=== PATIENT | male | born 1945 | race Caucasian/White ===

== ENCOUNTER 2017-12-23 12:38 | Outpatient (CLI) | payer MEDICARE ==
--- NOTE | 2017-12-23 14:06 | RAD ---
TWO VIEWS OF THE ABDOMEN: HISTORY: Constipation. The patient's last bowel movement was five days ago. COMPARISON: None. FINDINGS: Two views of the abdomen show a nonspecific, nonobstructive bowel gas pattern. No significant stool retention is seen in the colon. Air is seen in the sigmoid colon. No free air or air-fluid levels a re seen on the upright examination. Multiple calcifications in the left upper quadrant of the abdomen likely represent splenic granulomas . IMPRESSION: No evidence of obstruction. POS: [facility]
== END 2017-12-23 12:39 | disposition home or self-care (01) ==
LOC: SCSRAD 12:38
PROVIDERS: ATTEND Family Medicine
DX: K59.01 Slow transit constipation (principal); R10.32 Left lower quadrant pain
CPT/HCPCS: 36415; 74019; 81003; 83615; 85025; 87086

== ENCOUNTER 2019-03-19 12:32 | Outpatient (CLI) | payer MEDICARE ==
--- NOTE | 2019-03-19 13:06 | RAD ---
SIX VIEWS LUMBOSACRAL SPINE: Comparison: None. History: Left hip pain for one month. FINDINGS: AP, lateral, oblique, and flexion/extension views of the lumbosacral spine was performed. The vertebr al bodies and intervertebral discs demonstrate normal height and alignment without fracture or sublux ation. Small osteophytes are seen in the lumbar spine. Alignment is unchanged in flexion and extensio n. Mild posterior facet arthrosis is seen in the lower lumbosacral spine. Vascular calcifications are seen in the aorta. IMPRESSION: Moderate degenerative changes of the lumbar spine with unchanged alignment with bending. POS: [facility]
== END 2019-03-19 12:33 | disposition home or self-care (01) ==
LOC: SCSRAD 12:32
PROVIDERS: ATTEND Family Medicine
DX: M54.5 Low back pain (principal); M47.816 Spondylosis without myelopathy or radiculopathy, lumbar region
CPT/HCPCS: 36415; 72100; 80053; 84478

== ENCOUNTER 2019-08-14 07:55 | Day surgery (SDC) | payer MEDICARE ==
[2019-08-13 13:14] VITALS: BMI 204.2
[2019-08-14] MEDS ORDERED: Lidocaine 1% (PF) 30 ML VIAL ONE (09:10)
[2019-08-14] MEDS ORDERED: Verapamil 5 MG/2 ML VIAL ONE (09:19)
[2019-08-14] MEDS ORDERED: Nitroglycerin 100MG/250ML BOT 250 ML ONE (09:19)
[2019-08-14] MEDS ORDERED: Heparin 10,000 UNITS/1 ML VIAL ONE (09:19)
[2019-08-14] MEDS ORDERED: Midazolam HCl 2 mg/2 ml Vial ONE (09:26)
[2019-08-14] MEDS ORDERED: Fentanyl 100 MCG/2 ML VIAL ONE (09:26)
[2019-08-14] MEDS ORDERED: Iopamidol 370 76% 100 ML VIAL ONE (09:53)
== END 2019-08-14 13:35 | disposition home or self-care (01) ==
LOC: CCL 07:55
PROVIDERS: ATTEND Internal Medicine Cardiovascular Disease
PROC: 4A023N7 Measurement of Cardiac Sampling and Pressure, Left Heart, Percutaneous Approach (ICD-10-PCS; principal; 2019-08-14)
PROC: B2001ZZ Plain Radiography of Single Coronary Artery using Low Osmolar Contrast (ICD-10-PCS; 2019-08-14)
DX: I25.119 Atherosclerotic heart disease of native coronary artery with unspecified angina pectoris (principal); I10 Essential (primary) hypertension; Z79.82 Long term (current) use of aspirin; Z79.899 Other long term (current) drug therapy; Z87.891 Personal history of nicotine dependence; Z88.8 Allergy status to other drugs, medicaments and biological substances
CPT/HCPCS: 76942; 93458; 99152; 99153; C1769; J1644; J2001; J2250; J3010; Q9967

== ENCOUNTER 2019-09-17 07:16 | Outpatient (CLI) | payer MEDICARE | END 2019-09-17 07:17 | disposition home or self-care (01) | LOC: LABBT 07:16 | PROVIDERS: ATTEND Thoracic Surgery (Cardiothoracic Vascular Surgery) | DX: Z01.810 Encounter for preprocedural cardiovascular examination (principal); I25.10 Atherosclerotic heart disease of native coronary artery without angina pectoris | CPT/HCPCS: 93005; 93010 ==

== ENCOUNTER 2019-09-17 14:30 | Inpatient (IN) | payer MEDICARE ==
[2019-09-17 13:10] LABS: Hemoglobin 15.2 g/dL (14.0-18.0); Mean Corpuscular HGB CONC 32.7 g/dL (32.0-36.0); Mean Corpuscular Hemoglobin 30.7 pg (27.0-31.0); Mean Corpuscular Volume 93.8 fL (78.0-98.0); Mean Platelet Volume 9.5 fL (7.4-10.4); Platelet Count 190 thou/uL (130-400); RBC Distribution Width 11.8 % (11.5-14.5); Red Blood Cell (RBC) Count 4.95 mill/uL (4.70-6.10); White Blood Cell (WBC) Count 7.2 thou/uL (4.8-10.8)
[2019-09-17 13:27] LABS: Anion Gap 12 mmol/L (10-20); BUN (Urea Nitrogen) 19 mg/dL (8.4-25.7); Calc. Creatinine Clearance 0 mL/min (70-130); Calcium 10.2 mg/dL (7.8-10.44); Carbon Dioxide 29 mmol/L (23-31); Chloride 103 mmol/L (98-107); Estimated GFR-MDRD 50; Glucose 103 mg/dL (83-110); Potassium 4.4 mmol/L (3.5-5.1); Sodium 140 mmol/L (136-145)
[2019-09-18] MEDS ORDERED: Albumin 5% 500 ML ONE (06:30)
[2019-09-18] MEDS ORDERED: Fentanyl 100 MCG/2 ML VIAL ONE (06:31)
[2019-09-18] MEDS ORDERED: Midazolam HCl 5 mg/5 ml Vial ONE (06:31)
[2019-09-18] MEDS ORDERED: Midazolam HCl 2 mg/2 ml Vial ONE (06:31)
[2019-09-18] MEDS ORDERED: Dexmedetomidine 200 MCG/2 ML VIAL ONE (06:32)
[2019-09-18] MEDS ORDERED: Vecuronium 10 MG VIAL ONE (06:32)
[2019-09-18] MEDS ORDERED: Heparin 10,000 UNITS/1 ML VIAL 30,000 UNITS in Sodium Chloride 0.9% 1,000 ML FS SCH (06:45)
[2019-09-18] MEDS ORDERED: Prevnar 13-Val Conj/PF 0.5 ML SYRINGE IM ONE (08:45)
[2019-09-18] MEDS ORDERED: FLU VACC TS2019-20(65YR UP)/PF 180 MCG/0.5 ML SYRINGE IM ONE (08:45)
[2019-09-18] MEDS ORDERED: PHENYLEPHRINE-NS 100 MCG/ML 10 ML SYRINGE ONE (09:50)
[2019-09-18] MEDS ORDERED: Protamine Sulfate 50 MG/5 ML VIAL ONE (10:44)
[2019-09-18] MEDS ORDERED: Ondansetron PF 4 MG/2 ML Vial IVP PRN (11:54)
[2019-09-18] MEDS ORDERED: niCARdipine 25 MG in Sodium Chloride 0.9% 250 ML 240 ML IVPB PRN (11:54)
[2019-09-18] MEDS ORDERED: Morphine 2 MG/ML SYRINGE SLOW IVP PRN (11:54)
[2019-09-18] MEDS ORDERED: Mag-Al 1200 mg/1200 mg/30 ML UDCUP PO PRN (11:54)
[2019-09-18] MEDS ORDERED: DOPamine 400 MG/D5W 250 ML 250 ML IVPB PRN (11:54)
[2019-09-18] MEDS ORDERED: Promethazine HCl 25 MG/ML VIAL IM PRN (11:54)
[2019-09-18] MEDS ORDERED: Norepinephrine 8 MG/0.9% NS 250 ML IVPB PRN (11:54)
[2019-09-18] MEDS ORDERED: Bisacodyl 5 MG TAB PO PRN (11:54)
[2019-09-18] MEDS ORDERED: Guaifenesin DM 100-10/5 ML UDCUP PO PRN (11:54)
[2019-09-18] MEDS ORDERED: Fentanyl 100 MCG/2 ML VIAL SLOW IVP PRN (11:54)
[2019-09-18] MEDS ORDERED: hydrALAZINE 20 MG/ML VIAL SLOW IVP PRN (11:54)
[2019-09-18] MEDS ORDERED: Hetastarch 6% 500 ML 500 ML IVPB PRN (11:54)
[2019-09-18] MEDS ORDERED: Acetaminophen 325 MG TAB PO PRN (11:54)
[2019-09-18] MEDS ORDERED: Bisacodyl 10 MG SUPP PR PRN (11:54)
[2019-09-18] MEDS ORDERED: Nitroglycerin 50 MG/250 ML BOT 250 ML IVPB PRN (11:54)
[2019-09-18] MEDS ORDERED: HYDROcodone/Acetaminophen 5/325 mg Tablet PO PRN (11:54)
[2019-09-18] MEDS ORDERED: Post-Op Insulin Drip Protocol IVPB ONE (11:54)
[2019-09-18] MEDS ORDERED: Potassium Chloride 20 MEQ/100 ML PREMIX BAG IVPB PRN (11:54)
[2019-09-18] MEDS ORDERED: Magnesium 2 GM/50 ML 2 GM in Premix Bag 1 BAG IVPB SCH (12:15)
[2019-09-18] MEDS ORDERED: Dextrose 5% in Water 1,000 ML IV PRN (12:24)
[2019-09-18] MEDS ORDERED: Insulin Regular 300 UNITS/3 ML VIAL SC PRN (12:24)
[2019-09-18] MEDS ORDERED: HUMULIN R 100 UNITS in Sodium Chloride 0.9% 100 ML IVPB SCH ×2 (12:24→13:34)
[2019-09-18] MEDS ORDERED: Dextrose 50% Abboject 50 ML SYRINGE SLOW IVP PRN (12:24)
[2019-09-18 12:42] LABS: Hemoglobin 13.2 g/dL (14.0-18.0); Mean Corpuscular HGB CONC 33.4 g/dL (32.0-36.0); Mean Corpuscular Hemoglobin 31.7 pg (27.0-31.0); Mean Corpuscular Volume 94.7 fL (78.0-98.0); RBC Distribution Width 11.9 % (11.5-14.5); Red Blood Cell (RBC) Count 4.17 mill/uL (4.70-6.10); White Blood Cell (WBC) Count 18.6 thou/uL (4.8-10.8)
[2019-09-18 12:47] LABS: INR-International Normal Ratio 1.3; Prothrombin Time 16.4 SEC (12.0-14.7)
[2019-09-18 12:48] LABS: PTT 22.1 SEC (22.9-36.1)
[2019-09-18] MEDS: Fentanyl 100 MCG/2 ML VIAL SLOW IVP PRN ×2 (12:56→14:04)
[2019-09-18] MEDS: Lactated Ringer's 1,000 ML IV SCH ×2 (12:58→21:08)
[2019-09-18 13:08] LABS: Anion Gap 11 mmol/L (10-20); BUN (Urea Nitrogen) 14 mg/dL (8.4-25.7); Calc. Creatinine Clearance 101 mL/min (70-130); Calcium 8.5 mg/dL (7.8-10.44); Carbon Dioxide 25 mmol/L (23-31); Chloride 107 mmol/L (98-107); Estimated GFR-MDRD 68; Glucose 157 mg/dL (83-110); Potassium 4.2 mmol/L (3.5-5.1); Sodium 139 mmol/L (136-145)
--- NOTE | 2019-09-18 13:24 | RAD ---
PORTABLE CHEST ONE VIEW: 09/18/2019 12:10 p.m. HISTORY: Post CABG surgery. COMPARISON: 01/29/2016 FINDINGS: Interval changes of median sternotomy are present. There is a right subclavian central line with the tip in the projection of the right atrium. A mediastinal drain is present. The heart size is stable. There is atelectatic change at the left lung base with probable accompanying small effusion. No defin ite pneumothorax is seen. POS: [facility]
[2019-09-18 13:28] LABS: #Eosinphils 0.3 thou/uL (0.0-0.7); #Lymphocytes 1.4 thou/uL (1.20-3.40); #Monocytes 0.9 thou/uL (0.11-0.59); %Basophils 0.2 % (0.0-1.0); %Eosinophils 1.7 % (0.0-10.0); %Lymphocytes 7.7 % (21.0-51.0); %Monocytes 4.7 % (0.0-10.0); %Neutrophils 85.7 % (42.0-75.0); MDiff Complete? YES; Mean Platelet Volume 9.1 fL (7.4-10.4); Platelet Count 110 thou/uL (130-400)
[2019-09-18 13:29] LABS: Band 27 % (5-11); Lymphocytes 9 % (21-51); Monocytes 3 % (0-10); Neutrophil 61 % (42-75); Platelet Morphology Comment Appears Decreased; RBC Morphology Normal
[2019-09-18] MEDS: CEFAZOLIN 2 GM in Premix Bag 1 BAG IVPB SCH ×2 (13:55→21:07)
[2019-09-18] MEDS: Ibuprofen 800 MG TAB PO SCH ×2 (13:56→21:06)
--- NOTE | 2019-09-18 15:30 | CON ---
DATE OF CONSULTATION: 09/18/2019 REASON FOR CONSULTATION: Status post CABG. HISTORY OF PRESENT ILLNESS: Mr. Dockery is a very pleasant 74-year-old white gentleman, well known to myself, who comes to the hospital for planned CABG. He underwent this procedure earlier today by Dr. Ann. He did well. He is now extubated. He is complaining of just sore chest. Otherwise, he is not needing any pressor or inotropic support. PAST MEDICAL HISTORY: 1. Hypertension. 2. Bradycardia. 3. History of coronary disease with previous stenting. SURGICAL HISTORY: 1. Stents in 1994. 2. Left heart catheterization some weeks ago. SOCIAL HISTORY: Former smoker over 10 years ago. No alcohol or drugs. OUTPATIENT MEDICATIONS: Include 1. Simvastatin 40 mg a day. 2. Aspirin 81 a day. 3. Benazepril 40 mg a day. 4. Hydrochlorothiazide 25 mg a day. 5. Omeprazole daily over the counter. 6. Norvasc 5 mg a day. 7. MiraLAX p.r.n. ALLERGIES: 1. MUSCLE RELAXER GIVES HIM HALLUCINATIONS. 2. RANITIDINE. REVIEW OF SYSTEMS: A 12-point review of systems was done and was all negative unless stated in the history of present illness. FAMILY HISTORY: Noncontributory. PHYSICAL EXAMINATION: VITAL SIGNS: Temperature 97.4, pulse 74, respiratory rate 14, saturating 94% on room air, and blood pressure 104/59. GENERAL: Awake, alert, oriented x3. No distress. HEENT: Normocephalic, atraumatic. NECK: Supple. LUNGS: Clear. CARDIOVASCULAR: S1 and S2. There is a three-component rub consistent with his chest tubes in place. ABDOMEN: Soft, positive bowel sounds. EXTREMITIES: Trace edema. SKIN: Warm and dry. LABORATORY DATA: Laboratory work was reviewed. Hemoglobin was 15 down to 13 after surgery. CMP was unremarkable. Chest x-ray was reviewed. ASSESSMENT PLAN WAS: 1. Multivessel coronary artery disease, status post coronary artery bypass grafting. 2. Hypertension. PLAN: 1. Continue post CABG care. 2. He will need aspirin and statin for life. 3. Restart SKIP inhibitor and possibly a beta-janneth once blood pressure and heart rate allows. Thank you for letting us to participate in the care of your patient. We will follow. Job ID: [id number]
[2019-09-18] MEDS: HYDROcodone/Acetaminophen 5/325 mg Tablet PO PRN (16:47)
[2019-09-18 18:26] LABS: Hemoglobin 13.1 g/dL (14.0-18.0)
[2019-09-18 18:41] LABS: Potassium 4.3 mmol/L (3.5-5.1)
[2019-09-19] MEDS: HYDROcodone/Acetaminophen 5/325 mg Tablet PO PRN (01:58)
[2019-09-19 03:20] LABS: #Lymphocytes 0.9 thou/uL (1.20-3.40); #Monocytes 1.2 thou/uL (0.11-0.59); #Neutrophils 12.9 thou/uL (1.40-6.50); %Basophils 0.1 % (0.0-1.0); %Eosinophils 0.1 % (0.0-10.0); %Lymphocytes 6.2 % (21.0-51.0); %Monocytes 8.2 % (0.0-10.0); %Neutrophils 85.4 % (42.0-75.0); Hemoglobin 12.5 g/dL (14.0-18.0); Mean Corpuscular HGB CONC 33.7 g/dL (32.0-36.0); Mean Corpuscular Hemoglobin 32.4 pg (27.0-31.0); Mean Corpuscular Volume 96.2 fL (78.0-98.0); Mean Platelet Volume 9.1 fL (7.4-10.4); Platelet Count 137 thou/uL (130-400); RBC Distribution Width 12.1 % (11.5-14.5); Red Blood Cell (RBC) Count 3.85 mill/uL (4.70-6.10); White Blood Cell (WBC) Count 15.1 thou/uL (4.8-10.8)
[2019-09-19 03:43] LABS: Anion Gap 12 mmol/L (10-20); BUN (Urea Nitrogen) 19 mg/dL (8.4-25.7); Calc. Creatinine Clearance 98 mL/min (70-130); Calcium 8.5 mg/dL (7.8-10.44); Carbon Dioxide 25 mmol/L (23-31); Chloride 105 mmol/L (98-107); Estimated GFR-MDRD 66; Glucose 124 mg/dL (83-110); Potassium 4.1 mmol/L (3.5-5.1); Sodium 138 mmol/L (136-145)
[2019-09-19] MEDS: Fentanyl 100 MCG/2 ML VIAL SLOW IVP PRN (04:12)
[2019-09-19] MEDS: Ibuprofen 800 MG TAB PO SCH ×3 (05:11→21:14)
[2019-09-19] MEDS: CEFAZOLIN 2 GM in Premix Bag 1 BAG IVPB SCH (05:12)
[2019-09-19] MEDS: Enoxaparin Sodium 40 MG/0.4 ML SYRINGE SC SCH (08:29)
[2019-09-19] MEDS: Lactated Ringer's 1,000 ML IV SCH (08:29)
[2019-09-19] MEDS: Polyethylene Glycol 3350 17 GM Packet PO SCH (08:30)
--- NOTE | 2019-09-19 08:40 | RAD ---
Portable frontal chest radiograph: 09/19/2019 COMPARISON: 09/18/2019 HISTORY: Evaluate chest following open heart surgery FINDINGS: Body habitus and portable technique limiting detailed assessment. Stable heart and mediasti nal contours. Stable midline sternotomy wires and right vascular catheter. Mild pulmonary vascular congestion. Mild increased linear density in the right infrahilar region and left lung base suggestin g volume loss. IMPRESSION: Mild increased density in the lung bases.
[2019-09-19] MEDS ORDERED: Aspirin 325 MG TAB PO SCH (09:00)
[2019-09-19] MEDS ORDERED: Nitroglycerin 0.4 MG TAB (25 Tab Bottle) SL PRN (10:24)
[2019-09-19] MEDS ORDERED: Mag-Al 1200 mg/1200 mg/30 ML UDCUP PO PRN (10:24)
[2019-09-19] MEDS ORDERED: Bisacodyl 10 MG SUPP PR PRN (10:24)
[2019-09-19] MEDS ORDERED: Bisacodyl 5 MG TAB PO PRN (10:24)
[2019-09-19] MEDS ORDERED: Guaifenesin DM 100-10/5 ML UDCUP PO PRN (10:24)
[2019-09-19] MEDS ORDERED: diphenhydrAMINE 25 MG CAP PO PRN (10:24)
[2019-09-19] MEDS ORDERED: Artificial Tears 18 DROP/0.9 ML EA EYE PRN (10:24)
[2019-09-19] MEDS ORDERED: traMADol HCl 50 MG TAB PO PRN ×2 (10:24)
[2019-09-19] MEDS ORDERED: Mineral Oil ENEMA PR PRN (10:24)
[2019-09-19] MEDS ORDERED: Zolpidem Tartrate 5 MG TAB PO PRN (10:24)
[2019-09-19] MEDS: Metoprolol Tartrate 25 MG TAB PO SCH (21:13)
[2019-09-19] MEDS: Atorvastatin Calcium 20 MG TAB PO SCH (21:13)
[2019-09-20 05:48] LABS: #Lymphocytes 1.5 thou/uL (1.20-3.40); #Monocytes 1.4 thou/uL (0.11-0.59); #Neutrophils 12.5 thou/uL (1.40-6.50); %Basophils 0.1 % (0.0-1.0); %Eosinophils 0.1 % (0.0-10.0); %Lymphocytes 9.5 % (21.0-51.0); %Monocytes 8.8 % (0.0-10.0); %Neutrophils 81.5 % (42.0-75.0); Hemoglobin 11.2 g/dL (14.0-18.0); Mean Corpuscular HGB CONC 32.3 g/dL (32.0-36.0); Mean Corpuscular Hemoglobin 31.1 pg (27.0-31.0); Mean Corpuscular Volume 96.1 fL (78.0-98.0); Mean Platelet Volume 9.8 fL (7.4-10.4); Platelet Count 130 thou/uL (130-400); Red Blood Cell (RBC) Count 3.61 mill/uL (4.70-6.10); White Blood Cell (WBC) Count 15.4 thou/uL (4.8-10.8)
[2019-09-20] MEDS: Ibuprofen 800 MG TAB PO SCH ×3 (05:59→20:37)
[2019-09-20 06:03] LABS: Anion Gap 12 mmol/L (10-20); BUN (Urea Nitrogen) 22 mg/dL (8.4-25.7); Calc. Creatinine Clearance 103 mL/min (70-130); Calcium 8.6 mg/dL (7.8-10.44); Carbon Dioxide 26 mmol/L (23-31); Chloride 101 mmol/L (98-107); Estimated GFR-MDRD 70; Glucose 130 mg/dL (83-110); Potassium 4.1 mmol/L (3.5-5.1); Sodium 135 mmol/L (136-145)
[2019-09-20] MEDS: Enoxaparin Sodium 40 MG/0.4 ML SYRINGE SC SCH (09:42)
[2019-09-20] MEDS: Aspirin 81 mg Enteric Coated Tablet PO SCH (09:42)
[2019-09-20] MEDS: Furosemide 40 MG TAB PO SCH (09:42)
[2019-09-20] MEDS: Metoprolol Tartrate 25 MG TAB PO SCH ×2 (09:42→20:37)
[2019-09-20] MEDS: Polyethylene Glycol 3350 17 GM Packet PO SCH (09:42)
--- NOTE | 2019-09-20 10:53 | RAD ---
PORTABLE CHEST 1 VIEW: Date: 09/20/19 Time: 0745 hours HISTORY: Post CABG. FINDINGS/IMPRESSION: Comparison made with exam from previous day. There are changes of median sternotomy. Line and tube placements are unchanged in position. There is atelectatic change in the lung bases. No pneumothoraces seen. POS: [facility]
--- NOTE | 2019-09-20 15:32 | PDOC.CPN ---
- Subjective Date: 09/20/19 Time: 15:35 Interval history: The pt seen and examined. No overnight events. No cardiac complaints - Objective Allergies/Adverse Reactions: Allergies Allergy/AdvReac Type Severity Reaction Status Date / Time ranitidine HCl [From Zantac] Allergy Verified 09/17/19 11:47 unknown muscle relaxer Allergy hallucinati Uncoded 09/17/19 11:47 ons Visit Medications: Current Medications Al Hydroxide/Mg Hydroxide (Maalox) 30 ml PO Q4H PRN PRN Reason: Indigestion Albuterol/Ipratropium (Duoneb) 3 ml NEB [id number] PRN PRN Reason: SHORTNESS OF BREATH Artificial Tears (Tears Naturale) 0 drop EA EYE PRN PRN PRN Reason: Dry Eyes Aspirin (Ecotrin) 81 mg PO DAILY [facility] Last Admin: 09/20/19 09:42 Dose: 81 mg Atorvastatin Calcium (Lipitor) 20 mg PO HS [facility] Last Admin: 09/19/19 21:13 Dose: 20 mg Bisacodyl (Dulcolax) 10 mg PO Q12H PRN PRN Reason: Constipation Bisacodyl (Dulcolax) 10 mg RI Q12H PRN PRN Reason: Constipation Diphenhydramine HCl (Benadryl) 25 mg PO Q6H PRN PRN Reason: Itching & Insomnia or Bandar Cristhian Enoxaparin Sodium (Lovenox) 40 mg SC 0900 [facility] Last Admin: 09/20/19 09:42 Dose: 40 mg Furosemide (Lasix) 40 mg PO DAILY-[facility] Stop: 09/22/19 07:31 Last Admin: 09/20/19 09:42 Dose: 40 mg Guaifenesin/Dextromethorphan (Robitussin Dm) 15 ml PO Q4H PRN PRN Reason: Cough Ibuprofen (Motrin) 400 mg PO Q8HR [facility] Last Admin: 09/20/19 13:38 Dose: 400 mg Metoprolol Tartrate (Lopressor) 25 mg PO BID [facility] Last Admin: 09/20/19 09:42 Dose: 25 mg Mineral Oil (Fleet Mineral Oil) 133 ml RI DAILYPRN PRN PRN Reason: Constipation Nitroglycerin (Nitrostat) 0.4 mg SL Q5MIN PRN PRN Reason: Chest Pain Ondansetron HCl (Zofran) 4 mg IVP Q6H PRN PRN Reason: Nausea/Vomiting Polyethylene Glycol (Miralax) 17 gm PO DAILY [facility] Last Admin: 09/20/19 09:42 Dose: 17 gm Tramadol HCl (Ultram) 50 mg PO Q6H PRN PRN Reason: Moderate to Severe Pain (6-10) Zolpidem Tartrate (Ambien) 5 mg PO HSPRN PRN PRN Reason: Insomnia Vital Signs & Weight: Vital Signs Temp Pulse Pulse Pulse Resp BP BP 09/20/19 14:13 88 86 171/80 H 129/71 09/20/19 12:00 98.3 F 81 16 09/20/19 11:49 87 80 161/76 H 130/77 09/20/19 11:33 98.7 F 80 14 09/20/19 08:30 09/20/19 08:03 98.0 F 80 18 09/20/19 04:00 97.7 F 85 14 BP Pulse Ox Pulse Ox Pulse Ox 09/20/19 14:13 92 L 71 L 09/20/19 12:00 130/77 99 09/20/19 11:49 95 96 09/20/19 11:33 134/70 97 09/20/19 08:30 98 09/20/19 08:03 124/65 95 09/20/19 04:00 133/72 94 L Weight 251 lb - Physical Exam General: alert & oriented x3 Neck: supple neck Cardiac: regular rate and rhythm, S1/S2 Lungs: clear to auscultation, decreased breath sounds Neuro: cranial nerve 2-12 intact Abdomen: unremarkable Extremities: no cyanosis Skin: clear Musculoskeletal: decreased range of motion - Labs Result Diagrams: 09/20/19 04:40 09/20/19 04:39 - Telemetry Sinus rhythms and dysrhythmias: sinus rhythm - Assessment/Plan Assessment/Plan: 1. CAD with s/p CABG - stable with Metoprolol 25mg BID, ASA, and statin 2. HTN - stable 3. HLD - on Statin MAR reviewed * Dr Reina's pt
[2019-09-20] MEDS: Atorvastatin Calcium 20 MG TAB PO SCH (20:37)
[2019-09-21] MEDS: Ibuprofen 800 MG TAB PO SCH ×3 (06:18→21:12)
[2019-09-21] MEDS: Enoxaparin Sodium 40 MG/0.4 ML SYRINGE SC SCH (09:48)
[2019-09-21] MEDS: Polyethylene Glycol 3350 17 GM Packet PO SCH (09:48)
[2019-09-21] MEDS: Metoprolol Tartrate 25 MG TAB PO SCH ×2 (09:48→21:13)
[2019-09-21] MEDS: Furosemide 40 MG TAB PO SCH (09:48)
[2019-09-21] MEDS: Aspirin 81 mg Enteric Coated Tablet PO SCH (09:48)
--- NOTE | 2019-09-21 11:13 | PDOC.CPN ---
- Subjective Date: 09/21/19 Time: 11:11 Interval history: He is doing very well. He is still trying to figure out how to walk with his leg but feels well overall. - Review of Systems General: denies: fever/chills, weight/appetite/sleep changes, night sweats, fatigue Respiratory: denies: cough, congestion, shortness of breath, exercise intolerance Cardiovascular: denies: chest pain, palpitation, edema, paroxysmal nocturnal dyspnea, orthopnea Gastrointestinal: denies: nausea, vomiting, diarrhea, constipation, abd pain, GI bleeding Musculoskeletal: reports: pain, swelling. denies: tenderness, stiffness, arthritis/arthralgias Neurological: denies: numbness, syncope, seizure, weakness - Objective Allergies/Adverse Reactions: Allergies Allergy/AdvReac Type Severity Reaction Status Date / Time ranitidine HCl [From Zantac] Allergy Verified 09/17/19 11:47 unknown muscle relaxer Allergy hallucinati Uncoded 09/17/19 11:47 ons Visit Medications: Current Medications Al Hydroxide/Mg Hydroxide (Maalox) 30 ml PO Q4H PRN PRN Reason: Indigestion Albuterol/Ipratropium (Duoneb) 3 ml NEB [id number] PRN PRN Reason: SHORTNESS OF BREATH Aspirin (Ecotrin) 81 mg PO DAILY [facility] Last Admin: 09/21/19 09:48 Dose: 81 mg Atorvastatin Calcium (Lipitor) 20 mg PO HS [facility] Last Admin: 09/20/19 20:37 Dose: 20 mg Bisacodyl (Dulcolax) 10 mg PO Q12H PRN PRN Reason: Constipation Bisacodyl (Dulcolax) 10 mg HI Q12H PRN PRN Reason: Constipation Diphenhydramine HCl (Benadryl) 25 mg PO Q6H PRN PRN Reason: Itching & Insomnia or Bandar Cristhian Enoxaparin Sodium (Lovenox) 40 mg SC 0900 [facility] Last Admin: 09/21/19 09:48 Dose: 40 mg Furosemide (Lasix) 40 mg PO DAILY-[facility] Stop: 09/22/19 07:31 Last Admin: 09/21/19 09:48 Dose: 40 mg Guaifenesin/Dextromethorphan (Robitussin Dm) 15 ml PO Q4H PRN PRN Reason: Cough Ibuprofen (Motrin) 400 mg PO Q8HR [facility] Last Admin: 09/21/19 06:18 Dose: 400 mg Metoprolol Tartrate (Lopressor) 25 mg PO BID [facility] Last Admin: 09/21/19 09:48 Dose: 25 mg Mineral Oil (Fleet Mineral Oil) 133 ml HI DAILYPRN PRN PRN Reason: Constipation Nitroglycerin (Nitrostat) 0.4 mg SL Q5MIN PRN PRN Reason: Chest Pain Ondansetron HCl (Zofran) 4 mg IVP Q6H PRN PRN Reason: Nausea/Vomiting Polyethylene Glycol (Miralax) 17 gm PO DAILY [facility] Last Admin: 09/21/19 09:48 Dose: 17 gm Tramadol HCl (Ultram) 50 mg PO Q6H PRN PRN Reason: Moderate to Severe Pain (6-10) Zolpidem Tartrate (Ambien) 5 mg PO HSPRN PRN PRN Reason: Insomnia Vital Signs & Weight: Vital Signs Temp Pulse Pulse Pulse Resp BP BP 09/21/19 08:55 94 83 186/92 H 138/77 09/21/19 08:00 97.9 F 86 18 09/21/19 03:20 97.7 F 75 18 09/20/19 23:35 BP BP Pulse Ox Pulse Ox Pulse Ox 09/21/19 08:55 96 94 L 09/21/19 08:00 122/63 94 L 09/21/19 03:20 128/69 94 L 09/20/19 23:35 92 L Weight 245 lb - Physical Exam General: alert & oriented x3, no apparent distress HEENT: mucus membranes moist Neck: supple neck Cardiac: regular rate and rhythm, no murmur Lungs: clear to auscultation, no wheeze, rales, rhonchi Neuro: grossly intact Abdomen: active bowel sounds, soft, non-tender Extremities: no cyanosis, no clubbing, no edema Skin: clear Musculoskeletal: no pain - Labs Result Diagrams: 09/20/19 04:40 09/20/19 04:39 - Telemetry Sinus rhythms and dysrhythmias: sinus rhythm - Assessment/Plan Assessment/Plan: 1. Multivessel CAD 2. S/P CABG 3. HTN PLAN: - ASA and statin for life. - Increase PT as tolerated. - Continue BB - Will restart his Benazepril at a lower dose today. - Continue to hold HCTZ and Amnlodipine until BP is an issue.
--- NOTE | 2019-09-21 11:21 | OP ---
DATE OF PROCEDURE: 09/18/2019 PREOPERATIVE DIAGNOSIS: Coronary artery disease. PROCEDURE PERFORMED: Coronary artery bypass graft x4, left internal mammary artery, good quality to a 1.5 to 2 mm left anterior descending and saphenous vein good quality to a 1.5 mm obtuse marginal 1 and 2 mm obtuse marginal 2 and a small radial artery to a 1.5 mm diagonal. KETTLE SKIMMER: None. TRANSFUSIONS: None. DESCRIPTION OF PROCEDURE: After adequate anesthesia had been obtained, the patient was prepped and draped. Dr. Zee did an endovascular vein harvest of the left greater saphenous vein while I harvested a segment of the left radial artery. These wounds were then closed and I began harvest of the left internal mammary artery after a sternotomy. After heparinization, the mammary was divided distally and passed posterior to the thymus gland. Aorta and right atrium were cannulated. Cardiopulmonary bypass was begun. After vessels were inspected for grafting, the patient had a rather large heart, although did not have LVH. Aorta was crossclamped, and after a liter of [place] cardioplegic solution was given, 4 distal anastomosis were completed. Crossclamp was removed, partial occluding clamp placed, and 2 proximal anastomosis of the vein were performed on the aortic root into the parker of the one of the vein grafts. The radial artery was placed. Following this, the patient was weaned from cardiopulmonary bypass. Cannula was removed and protamine was given systemically. Mediastinal drains x2 were placed, following which the sternum was reapproximated with #7 interrupted wire as well as 2 zip ties. Subcutaneous tissue and skin were closed in layers and vancomycin paste was used on the sternal edges, platelet-rich blood and platelet-poor plasma in the subcutaneous tissue. Job ID: [id number]
[2019-09-21 13:17] VITALS: BMI 29.8
[2019-09-21] MEDS: Atorvastatin Calcium 20 MG TAB PO SCH (21:12)
[2019-09-22] MEDS: Ibuprofen 800 MG TAB PO SCH (05:54)
--- NOTE | 2019-09-22 07:12 | DIS ---
DATE OF ADMISSION: 09/18/2019 DATE OF DISCHARGE: 09/22/2019 HOSPITAL COURSE: The patient was admitted on 09/18, he underwent coronary artery bypass grafting. His postoperative course was unremarkable. He had grafts to the two obtuse marginals as well as LAD diagonal using mammary on the LAD, radial on the diagonal, and vein on the OMs. He will be discharged home today on metoprolol 25 b.i.d., benazepril 20 mg daily, which is half of his home dose as well as resuming his other medicines except for amlodipine, which has also been on hold. Discharge and followup instructions were given. Job ID: [id number]
[2019-09-22 07:39] VITALS: BP 123/74; TEMP 98.2
[2019-09-22] MEDS: Furosemide 40 MG TAB PO SCH (07:39)
[2019-09-22] MEDS: Aspirin 81 mg Enteric Coated Tablet PO SCH (08:52)
[2019-09-22] MEDS: Metoprolol Tartrate 25 MG TAB PO SCH (08:52)
[2019-09-22] MEDS: Enoxaparin Sodium 40 MG/0.4 ML SYRINGE SC SCH (08:52)
[2019-09-22] MEDS: Polyethylene Glycol 3350 17 GM Packet PO SCH (08:53)
[2019-09-22] MEDS ORDERED: Lisinopril 5 MG TAB PO SCH (09:00)
--- NOTE | 2019-09-22 10:30 | EKG ---
Test Reason : POST CABG Blood Pressure : / mmHG Vent. 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
[2019-09-22 11:48] LABS: Actual Bicarbonate (HCO3a) 24.4 mEq/L (22-28); Analyzer IN Cardio OR; CO2 Tension 43.3 mmHg (35.0-45.0); Calcium, Ionized 1.17 mmol/L (1.12-1.30); Carboxyhemoglobin (COHb) 0.9 gm% (0.0-3.0); Hemoglobin (Hb) 14.2 g/dL (14.0-18.0); O2 Tension (PaO2) 138.4 mmHg (> 70.0); Potassium - ABG Lab 4.49 mmol/L (3.70-5.30); pH, Arterial 7.37 (7.35-7.45)
[2019-09-22 11:49] LABS: Actual Bicarbonate (HCO3a) 23.6 mEq/L (22-28); Analyzer IN Cardio OR; Base Excess (BEa) -1.9 mEq/L (-2.0 to +3.0); CO2 Tension 43.4 mmHg (35.0-45.0); Calcium, Ionized 1.04 mmol/L (1.12-1.30); Carboxyhemoglobin (COHb) 0.3 gm% (0.0-3.0); Hemoglobin (Hb) 11.3 g/dL (14.0-18.0); O2 Tension (PaO2) 449.6 mmHg (> 70.0); Potassium - ABG Lab 5.08 mmol/L (3.70-5.30); pH, Arterial 7.35 (7.35-7.45)
[2019-09-22 11:49] LABS: Actual Bicarbonate (HCO3v) 26 mEq/L (22-28); Analyzer IN Cardio OR; Base Excess -0.7 mEq/L (-2.0 to +3.0); Calcium, Ionized 1.07 mmol/L (1.16-1.32); Chloride (ABG LAB) 102 mmol/L (98-106); Hemoglobin (Hb) 11.4 g/dL (12.6-17.4); Potassium - ABG Lab 5.06 mmol/L (3.70-5.30); Sodium 136.3 mmol/L (133-146); pH (venous) 7.31 (7.32-7.43)
[2019-09-22 11:49] LABS: Actual Bicarbonate (HCO3a) 22.6 mEq/L (22-28); Analyzer IN Cardio OR; Base Excess (BEa) -2.5 mEq/L (-2.0 to +3.0); CO2 Tension 40.1 mmHg (35.0-45.0); Calcium, Ionized 1.06 mmol/L (1.12-1.30); Carboxyhemoglobin (COHb) 0.3 gm% (0.0-3.0); Hemoglobin (Hb) 11.5 g/dL (14.0-18.0); pH, Arterial 7.37 (7.35-7.45)
[2019-09-22 11:50] LABS: Actual Bicarbonate (HCO3a) 24.5 mEq/L (22-28); Analyzer IN Cardio OR; Base Excess (BEa) -2.5 mEq/L (-2.0 to +3.0); CO2 Tension 51.1 mmHg (35.0-45.0); Calcium, Ionized 1.15 mmol/L (1.12-1.30); Hemoglobin (Hb) 12.8 g/dL (14.0-18.0); O2 Tension (PaO2) 278.5 mmHg (> 70.0); Potassium - ABG Lab 4.11 mmol/L (3.70-5.30)
[2019-09-22 12:42] LABS: Puncture Site ALINE
[2019-09-22 12:43] LABS: Puncture Site ALINE
[2019-09-22 12:43] LABS: Puncture Site ALINE
[2019-09-22 12:44] LABS: Puncture Site ALINE
--- NOTE | 2019-09-22 21:27 | PDOC.CPN ---
- Subjective Date: 09/22/19 Time: 12:45 Interval history: He is ambulating without issues. He had BM's. Feeling well. - Review of Systems General: denies: fever/chills, weight/appetite/sleep changes, night sweats, fatigue Respiratory: denies: cough, congestion, shortness of breath, exercise intolerance Cardiovascular: denies: chest pain, palpitation, edema, paroxysmal nocturnal dyspnea, orthopnea Gastrointestinal: denies: nausea, vomiting, diarrhea, constipation, abd pain, GI bleeding Musculoskeletal: denies: pain, tenderness, stiffness, swelling, arthritis/ arthralgias Neurological: denies: numbness, syncope, seizure, weakness - Objective Allergies/Adverse Reactions: Allergies Allergy/AdvReac Type Severity Reaction Status Date / Time ranitidine HCl [From Zantac] Allergy Verified 09/17/19 11:47 unknown muscle relaxer Allergy hallucinati Uncoded 09/17/19 11:47 ons Vital Signs & Weight: Weight 240 lb 9.6 oz - Physical Exam General: alert & oriented x3, no apparent distress HEENT: mucus membranes moist, normocephaly Neck: supple neck, midline trachea Cardiac: regular rate and rhythm, no murmur Lungs: clear to auscultation Neuro: grossly intact Abdomen: active bowel sounds, soft, non-tender Extremities: no edema Skin: clear Musculoskeletal: no pain - Labs Result Diagrams: 09/20/19 04:40 09/20/19 04:39 - Telemetry Sinus rhythms and dysrhythmias: sinus rhythm - Assessment/Plan Assessment/Plan: 1. Multivessel CAD 2. S/P CABG 3. HTN PLAN: - ASA and statin for life. - Increase PT as tolerated. - Continue BB and ACEI. - Restart HCTZ. - Hold Amnlodipine until BP is an issue. - May d/c home. - Will follow up in one month.
[2019-09-23 17:21] LABS: Actual Bicarbonate (HCO3a) 22.5 mEq/L (22-28); Analyzer IN Cardio OR; Base Excess (BEa) -2.9 mEq/L (-2.0 to +3.0); CO2 Tension 41.6 mmHg (35.0-45.0); Calcium, Ionized 1.16 mmol/L (1.12-1.30); Carboxyhemoglobin (COHb) 0.4 gm% (0.0-3.0); Hemoglobin (Hb) 14.5 g/dL (14.0-18.0); O2 Tension (PaO2) 122.7 mmHg (> 70.0); Potassium - ABG Lab 4.21 mmol/L (3.70-5.30); pH, Arterial 7.35 (7.35-7.45)
[2019-09-23 17:22] LABS: Puncture Site ALINE
== END 2019-09-22 11:17 | disposition home or self-care (01) | DRG 236 ==
LOC: SURG A 09-18 05:49 → CCU 09-18 09:51 → 2NO 09-19 13:58
PROVIDERS: ADMIT Thoracic Surgery (Cardiothoracic Vascular Surgery); ATTEND Thoracic Surgery (Cardiothoracic Vascular Surgery)
PROC: 02100Z9 Bypass Coronary Artery, One Artery from Left Internal Mammary, Open Approach (ICD-10-PCS; principal; 2019-09-18)
PROC: 021209W Bypass Coronary Artery, Three Arteries from Aorta with Autologous Venous Tissue, Open Approach (ICD-10-PCS; 2019-09-18)
PROC: 06BQ4ZZ Excision of Left Saphenous Vein, Percutaneous Endoscopic Approach (ICD-10-PCS; 2019-09-18)
PROC: 5A1221Z Performance of Cardiac Output, Continuous (ICD-10-PCS; 2019-09-18)
DX: I25.118 Atherosclerotic heart disease of native coronary artery with other forms of angina pectoris (principal); I10 Essential (primary) hypertension; E78.5 Hyperlipidemia, unspecified; Z87.891 Personal history of nicotine dependence; Z88.8 Allergy status to other drugs, medicaments and biological substances
CPT/HCPCS: 36415; 36416; 36430; 71045; 80048; 82805; 82947; 85025; 85027; 85610; 85730; 86850; 86900; 86901; 93005; 93010; 93798; J0690; J1642; J1650; J1815; J2250; J2720; J3010; J3475; J3490; P9045

== ENCOUNTER 2025-09-24 13:32 | Outpatient (CLI) | payer OTHER | END 2025-09-24 13:33 | disposition home or self-care (01) | LOC: ULT 13:32 | PROVIDERS: ATTEND Family Medicine | DX: R79.89 Other specified abnormal findings of blood chemistry (principal); E04.1 Nontoxic single thyroid nodule | CPT/HCPCS: 76536 ==